=== PATIENT | male | born 1945 | race Caucasian/White ===

== ENCOUNTER 2024-02-13 06:17 | Day surgery (SDC) | payer OTHER, MEDICARE, SELFPAY ==
[2024-02-08 07:54] VITALS: BMI 24.7
[2024-02-08 09:05] LABS: Hematocrit 41.4 % (39.0-52.0); Mean Corp Hgb Conc. 33.8 g/dL (33.0-37.0); Mean Corpuscular Hgb 29.8 pg (27.0-31.0); Mean Corpuscular Volume 88.1 fL (80.0-94.0); Mean Platelet Volume 10.2 fL (7.4-10.4); Platelet Count 293 10^3/uL (130-400); White Blood Cell Count 5.6 10^3/uL (4.8-10.8)
[2024-02-08 12:22] LABS: ALT (SGPT) 19 U/L (0-50); AST (SGOT) 29 U/L (17-59); Albumin 4.1 g/dl (3.5-5.0); Alkaline Phosphatase 49 U/L (38-126); Blood Urea Nitrogen 23 mg/dl (9-20); Calcium 8.7 mg/dl (8.4-10.2); Carbon Dioxide 26 mmol/L (22-30); Chloride 101 mmol/L (98-107); Estimated Creatinine Clearance 49 ml/min; Glucose 95 mg/dl (70-99); Potassium 4.8 mmol/L (3.5-5.1); Sodium 139 mmol/L (135-145); Total Bilirubin 0.8 mg/dl (0.2-1.3); Total Protein 6.8 g/dl (6.3-8.2); eGFR > 60.00
[2024-02-13] VITALS (10 sets, daily range): BP systolic 119–158; BP diastolic 52–89; BMI 24.7
[2024-02-13] MEDS: CELEBREX 200 MG PO (09:51)
[2024-02-13] MEDS: NORMOSOL-R/PLASMALYTE-A 1000 IV (09:51)
[2024-02-13] MEDS: TYLENOL 1000 MG PO (09:51)
== END 2024-02-13 15:13 | disposition home or self-care (01) ==
LOC: SDS 06:17
PROVIDERS: ATTENDING PHYSICIAN Orthopaedic Surgery Hand Surgery; FAMILY PHYSICIAN Internal Medicine
DX: M19.012 Primary osteoarthritis, left shoulder (principal)
CPT/HCPCS: 23472; 36415; 73020; 80053; 85027; 87070; C1713; C1776

== ENCOUNTER → 2025-03-01 08:18 | Outpatient (REF) | payer OTHER, SELFPAY | LOC: RAD 08:18 | PROVIDERS: ATTENDING PHYSICIAN Student in an Organized Health Care Education/Training Program; FAMILY PHYSICIAN Nurse Practitioner Adult Health | DX: M79.18 Myalgia, other site (principal); R07.89 Other chest pain; Z91.81 History of falling | CPT/HCPCS: 71046; 71110 ==